=== PATIENT | male | born 1950 | race Caucasian/White ===

== ENCOUNTER → 2019-12-06 18:45 | Outpatient (CLI) | payer OTHER | END | disposition home or self-care (01) | LOC: D.LABREF 18:45 | PROVIDERS: ATTEND Podiatrist Foot & Ankle Surgery | DX: L03.115 Cellulitis of right lower limb (principal) ==

== ENCOUNTER 2019-12-28 05:26 | Day surgery (SDC) | payer MEDICARE ==
[~2019-12-28] VITALS: Ht 172.7 cm; Wt 111.1 kg
[~2019-12-28 05:26] MED LIST: FLOMAX0.4 MG PO; GABAPENTIN100 MG PO; GLUCOPHAGE500 MG PO; HYDROCODON-ACE1 EAC7 PO; LIDODERM 5 %1 PATCH TRANSDERM; LIPITOR40 MG PO; LISINOPRIL20 MG PO; PIOGLITAZONE15 MG PO; TOPROL XL25 MG PO
[2019-12-28 05:57] LABS: HEMATOCRIT 38.9 % (42.0-54.0); HEMOGLOBIN 12.4 g/dL (13.5-17.5); MCH 30.2 pg (26.0-34.0); MCHC 31.9 g/dL (31.0-37.0); MCV 94.6 fL (80.0-100.0); MEAN PLATELET VOLUME 9.2 fL (7.4-10.4); RBC 4.11 10x6/uL (4.20-6.10); WBC 8.4 10x3/uL (4.8-10.8)
[2019-12-28 06:10] LABS: CALCIUM 9.1 mg/dL (8.5-10.1); CARBON DIOXIDE 28.6 mmol/L (21.0-32.0); CREATININE - SERUM 1.9 mg/dL (0.6-1.3); POTASSIUM - SERUM 4.6 mmol/L (3.5-5.1)
[2019-12-28 07:35] VITALS: BP 196/107; Ht 172.7 cm; Wt 111.1 kg
[2019-12-28] MEDS ORDERED: HYDROCODON-ACE1 EAC7 PO (09:47)
--- NOTE | 2019-12-28 10:06 | NUR ---
1001-FULL LIQUID TRAY TO ROOM.
--- NOTE | 2019-12-28 10:40 | NUR ---
1040-PT TOLERATED TRAY. AMBULATED TO RESTROOM-POST SURGICAL BOOT IN PLACE- AND VOIDED WITHOUT COMPLICATIONS. DENIES PAIN. VSS. DRESSING CDI. REMOVED IV WITH CATH INTACT, DISPOSED INTO SHARPS,COVERED WITH GUAZE,SECURED WITH MEDIPORE TAPE.
--- NOTE | 2019-12-28 11:05 | NUR ---
1052-DISCHARGE CRITERIA MET. REIVEWED POST OPERATIVE INSTRUCTIONS AND FOLLOW UP APPOINTMENT. VERBALIZED UNDERSTANDING. ESCORTED OUT VIA W/C WITH SPOUSE AWAITING TO DRIVE HOME
== END 2019-12-28 10:52 | disposition home or self-care (01) ==
LOC: D.OPS 05:26 → D.PAN 07:30 → D.OPS 07:30
PROVIDERS: Anesthesiology; ATTEND Podiatrist Foot & Ankle Surgery
DX: I96 Gangrene, not elsewhere classified (principal)

== ENCOUNTER → 2020-12-10 12:50 | Day surgery (SDC) | payer OTHER ==
[2020-11-22 17:39] VITALS: BMI 35.6
[~2020-12-10 12:50] MED LIST changes: +ADOXA100 MG PO; +PLAVIX75 MG PO
[2020-12-10 13:47] LABS: ANION GAP 11.6 mmol/L (8-16); CALCIUM 9.2 mg/dL (8.5-10.1); CARBON DIOXIDE 29.5 mmol/L (21.0-32.0); CREATININE - SERUM 1.9 mg/dL (0.6-1.3); POTASSIUM - SERUM 5.1 mmol/L (3.5-5.1)
--- NOTE | 2020-12-10 14:03 | NUR ---
PT CANCELLED DUE TO EATING SAUSAGE BISCUIT AT 1000AM AT THIS TIME. PT TO BE RESCHEDULED ON WEDNESDAY.
--- NOTE | 2020-12-10 14:05 | NUR ---
PT DC INSTRUCTIONS REVIEWED AT THIS TIME REGARDING PRE-OP INSTRUCTIONS.
[2020-12-10 14:17] LABS: BASOPHILS 0.4 % (0-2); EOSINOPHILS 7.1 % (0-7); IMMATURE GRANULOCYTES 0.3 % (0-5); LYMPHOCYTE ABS# 1.37 10x3/uL (1.32-3.57); LYMPHOCYTES 20.4 % (15-50); MCH 29.1 pg (26.0-34.0); MCHC 31.7 g/dL (31.0-37.0); MCV 91.9 fL (80.0-100.0); MEAN PLATELET VOLUME 9.6 fL (7.4-10.4); MONOCYTES 9.5 % (2-11); NEUTROPHIL ABS# 4.18 10x3/uL (1.78-5.38); NEUTROPHILS 62.3 % (40-80); PLATELET COUNT 329 10x3/uL (130-400); RBC 4.46 10x6/uL (4.20-6.10); RDW 13.8 % (11.5-14.5); WBC 6.7 10x3/uL (4.8-10.8)
== END | disposition home or self-care (01) ==
LOC: D.OPS 12:50
PROVIDERS: Anesthesiology; ATTEND Podiatrist Foot & Ankle Surgery
DX: I96 Gangrene, not elsewhere classified (principal); Z53.8 Procedure and treatment not carried out for other reasons

== ENCOUNTER 2020-12-12 05:23 | Day surgery (SDC) | payer OTHER ==
[~2020-12-12] VITALS: Ht 172.7 cm; Wt 111.1 kg
[2020-12-12 06:52] VITALS: BP 170/91; Ht 172.7 cm; Wt 111.1 kg
--- NOTE | 2020-12-12 16:10 | NUR ---
IV D/C'D WITH CANNULA INTACT, PRESSURE HELD AND DRSG PLACED. DISCHARGE INSTRUCTIONS GIVEN AND PT VERBALIZED AN UNDERSTANDING. DRSG CDI AND BOOT IN PLACE. VOIDS WITHOUT DIFFICULTY
== END 2020-12-12 10:50 | disposition home or self-care (01) ==
LOC: D.OPS 05:23
PROVIDERS: ATTEND Podiatrist Foot & Ankle Surgery
DX: I96 Gangrene, not elsewhere classified (principal); M79.672 Pain in left foot; E11.9 Type 2 diabetes mellitus without complications; I10 Essential (primary) hypertension; I25.2 Old myocardial infarction; Z95.1 Presence of aortocoronary bypass graft